=== PATIENT | male | born 1985 | race Caucasian/White ===

== ENCOUNTER 2017-07-27 09:29 | Inpatient (IN) | payer OTHER ==
[~2017-07-27] VITALS: Ht 177.8 cm; Wt 90.7 kg
--- NOTE | 2017-07-27 09:29 | NUR ---
PATIENT BIBA TO BED 10 AT THIS TIME.
[2017-07-27 09:31] VITALS: BP 114/69
--- NOTE | 2017-07-27 09:46 | NUR ---
PT C/O DISSINESS, NASAL CONGESTION, COUGH, X2 DAYS. SENT HOME FROM WORK ON 07/26 FOR DIZZINESS. STATES SLEPT ALL DAY. WENT TO URGENT CARE THIS MORNING, LOST CONCIOUSNESS, AND CAME TO [facility] VIA EMS. PATIENT IS A&OX4. NO RESPIRATORY DISTRESS. GENERALLY FEELING ILL. MD AWARE. CONTINUE TO MONITOR.
--- NOTE | 2017-07-27 10:30 | NUR ---
PATIENT RESTING CONFORTABLY. A&OX4. NO DISTRESS. CONTINUE TO MONITOR. FAMILY AT BEDSIDE.
[2017-07-27] MEDS ORDERED: NACL 0.9% 1,000 ML IV ONE ×2 (11:30→13:10)
--- NOTE | 2017-07-27 11:33 | NUR ---
ER MD DR. URIOSTEGUI EVALUATING PT AT BEDSIDE.
[2017-07-27] MEDS ORDERED: KETOROLAC 30 MG/ML VIAL IVP ONE (11:40)
--- NOTE | 2017-07-27 11:56 | NUR ---
PT REFUSED TORADOL ORDERED BY ER MD DR. URIOSTEGUI. PT STATES IN NO PAIN AT THIS TIME; ER MD DR. URIOSTEGUI NOTIFIED. WILL CONTINUE TO MONITOR.
--- NOTE | 2017-07-27 11:59 | NUR ---
PT TAKEN TO CT VIA W/C ACCOMPANIED BY POLYBONA AT THIS TIME.
[2017-07-27 12:01] LABS: BASOPHILS # (AUTO) 0.3 K/uL (0.00-0.22); BASOPHILS % (AUTO) 2.8 % (0.0-2.0); EOSINOPHILS % (AUTO) 0.1 % (0.0-4.0); HEMOGLOBIN 13.6 g/dL (12.0-18.0); LYMPHOCYTES # (AUTO) 1.1 K/uL (2.0-11.5); LYMPHOCYTES % (AUTO) 12.3 % (20.5-51.1); MEAN CORPUSCULAR HEMOGLOBIN 30 pg (27-31); MEAN CORPUSCULAR HGB CONC 34 g/dL (33-37); MEAN CORPUSCULAR VOLUME 88 fL (80-94); MONOCYTES # (AUTO) 1.2 K/uL (0.8-1.0); MONOCYTES % (AUTO) 13.2 % (1.7-9.3); NEUTROPHILS # (AUTO) 6.3 K/uL (1.8-7.7); NEUTROPHILS % (AUTO) 71.6 % (42.2-75.2); PLATELET COUNT (AUTO) 199 K/uL (140-450); RED BLOOD CELL COUNT(AUTO) 4.57 MIL/uL (4.20-6.10); RED CELL DISTRIBUTION WIDTH 12.1 % (11.6-13.7); WHITE BLOOD COUNT (AUTO) 8.9 K/uL (4.8-10.8)
[2017-07-27 12:13] LABS: ANION GAP 16.7 (8-16); CARBON DIOXIDE 25.1 mmol/L (21-32); CREATININE 1.7 mg/dL (0.7-1.3); POTASSIUM 3.8 mmol/L (3.5-5.1)
[2017-07-27 12:19] LABS: ALBUMIN 4.2 g/dL (3.4-5.0); TOTAL BILIRUBIN 0.8 mg/dL (0.0-1.0)
--- NOTE | 2017-07-27 12:58 | NUR ---
PATIENT RESTING CONFORTABLY. VSS AT THIS TIME. CONTINUE TO MONITOR.
[2017-07-27] MEDS ORDERED: LORazepam 2 MG/ML VIAL IVP PRN (13:30)
[2017-07-27] MEDS ORDERED: ACETAMINOPHEN 325 MG TAB PO PRN (13:30)
[2017-07-27] MEDS ORDERED: ALBUTEROL 0.083% 2.5 MG/3 ML NEBU IH PRN (13:30)
[2017-07-27] MEDS ORDERED: ONDANSETRON 4 MG/2 ML VIAL IVP PRN (13:30)
[2017-07-27] MEDS ORDERED: HYDROcodone/APAP 5/325 MG 1 TAB TAB PO PRN ×2 (13:30)
[2017-07-27 14:24] LABS: BARBITURATE, URINE NEG. ng/ml (NEG <=200); BENZODIAZEPINE, URINE NEG. ng/mL (NEG <=200); CANNABINOID, URINE NEG. ng/mL (NEG <=50); COCAINE, URINE NEG. ng/mL (NEG <=300); OPIATE, URINE NEG. ng/mL (NEG <=2000); PHENCYCLIDINE SCREEN,URINE NEG. ng/mL (NEG <=25)
--- NOTE | 2017-07-27 14:25 | NUR ---
PATIENT TRANSERED TO TELE 112-B VIA GURNEY WITH RN AND EMT. VVS STABLE. PATIENT RESTING COMFORTABLY AND STABLE AT THIS TIME.
--- NOTE | 2017-07-27 14:25 | NUR ---
RECEIVED PT ON UNIT VIA SIMA, PT IS A/OX4, AMBULATORY, IV ON THE RT AC, PATENT, INTACT, FLUSHING WELL, SKIN INTACT, NO S/S OF RESPIRATORY DISTRESS OR DISCOMFORT NOTED, DISCUSSED PLAN OF CARE WITH PT, PT VERBALIZED UNDERSTANDING, ORIENTED PT TO ROOM, SAFETY/FALL PRECAUTIONS ARE IN PLACE, CALL LIGHT IS WITHIN REACH, WILL CONTINUE TO MONITOR.
[2017-07-27 15:29] VITALS: BP 112/67
[2017-07-27 16:00] VITALS: BP 113/69
--- NOTE | 2017-07-27 16:34 | NUR ---
PAGED DR. WELLINGTON FOR ADMIT ORDERS.
[2017-07-27] MEDS ORDERED: DEXT 5% / NACL 0.45% 1,000 ML IV SCH (17:00)
--- NOTE | 2017-07-27 17:20 | NUR ---
PT IVF STARTED AT THIS TIME, PT RESTING IN BED, NO S/S OF RESPIRATORY DISTRESS OR DISCOMFORT NOTED, CALL LIGHT WITHIN REACH.
[2017-07-27] MEDS: NACL 0.9% 1,000 ML IV SCH (17:28)
[2017-07-27] MEDS ORDERED: OSELTAMIVIR PHOSPHATE 75 MG CAP PO SCH (18:40)
--- NOTE | 2017-07-27 19:10 | NUR ---
ENDORSED PT TO ROPING TENDER NURSE FOR CONTINUITY OF CARE. PT STABLE AT THIS TIME.
--- NOTE | 2017-07-27 19:15 | NUR ---
RECEIVED PT AWAKE WATCHING TV, VITAL SIGNS STABLE, AFEBRILE, DENIES ANY PAIN AND NO SOB NOTED, IVF INFUSING WELL, PLAN OF CARE DISCUSSED, ENCOURAGE TO USE CALL LIGHT FOR ASSISTANCE, MAINTAIN ON DROPLET PRECAUTION, CALL LIGHT WITHIN REACH.
[2017-07-27 20:00] VITALS: BP 120/73
--- NOTE | 2017-07-27 20:30 | NUR ---
DR WELLINGTON HERE, SAW PT AND TALKED TO FAMILY MEMBERS AT BEDSIDE, ALL NEEDS ATTENDED.
--- NOTE | 2017-07-27 21:40 | NUR ---
ROUNDED ON PT, AWAKE WATCHING TV, NO SIGNS OF DISTRESS, MONITORED CLOSELY.
--- NOTE | 2017-07-27 23:20 | NUR ---
PT AMBULATED TO BR WITH STEADY GAIT, DENIES ANY DIZZINESS, VITAL SIGNS STALE, TEMP-99.8, IVF INFUSING WELL, NO NEEDS AT THIS TIME, CONTINUE TO MONITOR CLOSELY.
[2017-07-28] VITALS: BP 131/80
[2017-07-28] MEDS: NACL 0.9% 1,000 ML IV SCH (02:35)
--- NOTE | 2017-07-28 03:50 | NUR ---
PT SLEEPING, EASILY AROUSABLE, VITAL SIGNS STABLE, AFEBRILE, OCCASIONAL INTERMITTENT DRY COUGH NOTED, NO SOB NOTED, MONITORED CLOSELY.
[2017-07-28 04:00] VITALS: BP 107/66
--- NOTE | 2017-07-28 05:50 | NUR ---
CHEST X-RAY DONE.
--- NOTE | 2017-07-28 06:41 | NUR ---
PATIENT HAS BEEN SCREENED AND CATEGORIZED LOW NUTRITION RISK. PATIENT WILL BE SEEN WITHIN 7 DAYS OF ADMISSION. 08/03/17 KIMBERLY WANG MS, RDN
--- NOTE | 2017-07-28 07:15 | NUR ---
PT AWAKE, NO SIGNS OF DISTRESS, REPORT GIVEN TO CHASTITY MASON FOR CONTINUITY OF CARE.
--- NOTE | 2017-07-28 07:20 | NUR ---
RECEIVED REPORT FROM CARD WRITER HAND NURSE, PT IS RESTING IN BED, A/OX4, AMBULATORY, IV IS ON THE LEFT AC, PATENT, INTACT, FLUSHING WELL, NO S/S OF RESPIRATORY DISTRESS OR DISCOMFORT NOTED, DISCUSSED PLAN OF CARE WITH PT, PT VERBALIZED UNDERSTANDING, CALL LIGHT IS WITHIN REACH, WILL CONTINUE TO MONITOR.
[2017-07-28 07:43] LABS: BASOPHILS # (AUTO) 0.1 K/uL (0.00-0.22); BASOPHILS % (AUTO) 1.4 % (0.0-2.0); EOSINOPHILS # (AUTO) 0.1 K/uL (0-0.4); EOSINOPHILS % (AUTO) 0.9 % (0.0-4.0); HEMATOCRIT 36.8 % (36-52); HEMOGLOBIN 12.6 g/dL (12.0-18.0); LYMPHOCYTES # (AUTO) 2.1 K/uL (2.0-11.5); LYMPHOCYTES % (AUTO) 25.8 % (20.5-51.1); MEAN CORPUSCULAR HEMOGLOBIN 30 pg (27-31); MEAN CORPUSCULAR HGB CONC 34 g/dL (33-37); MEAN CORPUSCULAR VOLUME 88 fL (80-94); MONOCYTES # (AUTO) 0.6 K/uL (0.8-1.0); MONOCYTES % (AUTO) 7.6 % (1.7-9.3); NEUTROPHILS # (AUTO) 5.3 K/uL (1.8-7.7); NEUTROPHILS % (AUTO) 64.3 % (42.2-75.2); PLATELET COUNT (AUTO) 171 K/uL (140-450); RED BLOOD CELL COUNT(AUTO) 4.19 MIL/uL (4.20-6.10); RED CELL DISTRIBUTION WIDTH 12.4 % (11.6-13.7); WHITE BLOOD COUNT (AUTO) 8.2 K/uL (4.8-10.8)
[2017-07-28 07:54] LABS: ALBUMIN 3.6 g/dL (3.4-5.0); ANION GAP 10.4 (8-16); CARBON DIOXIDE 28.7 mmol/L (21-32); CREATININE 1.3 mg/dL (0.7-1.3); PHOSPHORUS 2.7 mg/dL (2.5-4.9); POTASSIUM 4.1 mmol/L (3.5-5.1); TOTAL BILIRUBIN 0.8 mg/dL (0.0-1.0)
[2017-07-28 08:00] VITALS: BP 122/73
[2017-07-28] MEDS ORDERED: OSELTAMIVIR PHOSPHATE 75 MG CAP PO SCH (09:00)
--- NOTE | 2017-07-28 09:52 | NUR ---
DUE MEDICATIONS GIVEN, PT TOLERATED WELL, CALL LIGHT WITHIN REACH.
[2017-07-28] MEDS ORDERED: TAM75 PO (11:12)
[2017-07-28] MEDS ORDERED: ACET-1182 PO (11:12)
--- NOTE | 2017-07-28 12:00 | NUR ---
DISCHARGE INSTRUCTIONS GIVEN, ID WRIST BAND REMOVED, IV REMOVED, CATHETER TIP INTACT. PT STABLE UPON DISCHARGE ACCOMPANIED BY HIS MOTHER.
--- NOTE | 2017-07-31 08:35 | NUR ---
RETRO FAXED ER REPORT TO [facility] [phone] PHONE DUSTIN [phone]. NO H&P OR DISCHARGE SUMMARY. Addendum: 07/31/17 at 0840 by Maggie Alcantar CM DISCHARGE INSTRUCTIONS FAXED TO [facility]
== END 2017-07-28 12:00 | disposition home or self-care (01) | DRG 469 ==
LOC: MED 09:29 → MTU 13:34
PROVIDERS: ADMIT Hospitalist; ATTEND Hospitalist
DX: N17.9 Acute kidney failure, unspecified (principal); J09.X2 Influenza due to identified novel influenza A virus with other respiratory manifestations; E86.0 Dehydration; Z88.0 Allergy status to penicillin
CPT/HCPCS: 36415; 70450; 71010; 80053; 80305; 83735; 84100; 84484; 85025; 87081; 87804; 93005; 96360; 96361; 99285; J7030; Q0092